=== PATIENT | female | born 1950 | race Caucasian/White ===

== ENCOUNTER 2022-09-24 09:22 | Day surgery (SDC) | payer MEDICARE ==
[~2022-09-24] VITALS: Ht 152.4 cm; Wt 81.7 kg
[~2022-09-24 09:22] MED LIST: ATOR10TA PO; CALC60OI TP; FENO160T75 PO; HALO15CR3 TP; HYDR25TA2 PO; IBAN150T21 PO; LOSA-382 PO; METO50 PO; NIFE-141 PO; OMEP-99 PO; POTA-92 PO; SUCR1TAB28 PO; TIMO5DRO21 OU; XALA2.5OS OU
[2022-09-24] MEDS ORDERED: SODIUM CHLORIDE 0.9% 1,000 ML ONE (09:54)
[2022-09-24] MEDS ORDERED: SODIUM CHLORIDE 0.9% 1,000 ML IV ONE ×2 (10:00)
[2022-09-24] MEDS ORDERED: AMIO200 PO (10:16)
[2022-09-24] MEDS ORDERED: DIAZEPAM 5 MG TABLET ONE (10:36)
[2022-09-24] MEDS ORDERED: ASPIRIN 81 MG CHEWABLE TABLET ONE (10:37)
[2022-09-24] MEDS ORDERED: DiphenhydrAMINE HCL 50 MG CAPSULE ONE (10:37)
[2022-09-24] MEDS ORDERED: LIDOCAINE/PF 1% 30 ML VIAL ONE (10:53)
[2022-09-24] MEDS ORDERED: SODIUM BICARBONATE 50 MEQ/50 ML VIAL ONE (10:54)
[2022-09-24] MEDS ORDERED: MIDAZOLAM HCL 2 MG/2 ML VIAL ONE (10:56)
[2022-09-24] MEDS ORDERED: FentaNYL CITRATE PF 100 MCG/2 ML VIAL ONE (10:56)
[2022-09-24] MEDS ORDERED: HEPARIN SODIUM 1000 UNITS/NS 1,000 ML ONE (10:57)
[2022-09-24] MEDS ORDERED: IOHEXOL 300 MG/ML 100 ML VIAL ONE (10:57)
[2022-09-24] MEDS ORDERED: DIAZEPAM 5 MG TABLET PO ONE (11:00)
[2022-09-24] MEDS ORDERED: DiphenhydrAMINE HCL 50 MG CAPSULE PO ONE (11:00)
[2022-09-24] MEDS ORDERED: ASPIRIN 81 MG CHEWABLE TABLET PO ONE (11:00)
[2022-09-24] MEDS ORDERED: OMEP40CA21 PO (11:27)
[2022-09-24] MEDS ORDERED: IOHEXOL 300 MG/ML 100 ML VIAL ICOR ONE (11:30)
[2022-09-24] MEDS ORDERED: FENO134C21 PO (11:30)
[2022-09-24] MEDS ORDERED: MIDAZOLAM HCL 2 MG/2 ML VIAL IVP ONE (11:30)
[2022-09-24] MEDS ORDERED: LIDOCAINE 1% 30 ML/SOD BICARB 8.4% 4 ML SQ ONE (11:30)
[2022-09-24] MEDS ORDERED: HEPARIN SODIUM 1000 UNITS/NS 1,000 ML IARTER ONE (11:30)
[2022-09-24] MEDS ORDERED: FentaNYL CITRATE PF 100 MCG/2 ML VIAL IVP ONE (11:30)
[2022-09-24] MEDS ORDERED: HydrALAZINE HCL 20 MG/ML VIAL ONE (11:49)
[2022-09-24] MEDS ORDERED: HydrALAZINE HCL 20 MG/ML VIAL IVP ONE (12:00)
== END 2022-09-24 16:10 | disposition home or self-care (01) ==
LOC: CATHLAB 09:22
PROVIDERS: ATTEND Internal Medicine Interventional Cardiology
DX: R94.39 Abnormal result of other cardiovascular function study (principal); I10 Essential (primary) hypertension; E78.5 Hyperlipidemia, unspecified; G51.0 Bell's palsy; Z90.710 Acquired absence of both cervix and uterus; Z98.890 Other specified postprocedural states
CPT/HCPCS: 93458; 99152; 93005; C1760; J3010; J1644; J0360; J3490 ×2; J2250; J7030; Q9967